=== PATIENT | male | born 1995 ===

== ENCOUNTER 2017-05-12 12:37 | Emergency (ER) | payer SELFPAY ==
[2017-05-12 12:44] VITALS: RESP 18; TEMP 98.3; O2SAT 98
--- NOTE | 2017-05-12 13:10 | C.PDOC ---
History Of Present Illness 21 year old male presents to the ED for evaluation of a draining abscess to left thigh x 2 days. Patient states he initially had pain to the area. Patient notes the area now has spontaneous drainage with pus. Patient denies fever. Patient is also requesting evaluation for possible DM. Reports polyuria as well as a familial history of DM. DRAINING ABSCESS L THIGH X 2 DAYS. INITIALLY W PAIN IN AREA, NOW SPONT DRAINAGE +PUS. NO FEVER REQUESTING EVAL FOR POSSIBLE DM. +POLYURIA. FHX DM EXAM NAD OBESE SKIN +DRAINING ABSCESS L INNER THIGH. MIN LOCAL INDURATION. REMAINDER NEG Time Seen by Provider: 05/12/17 12:57 Chief Complaint (Nursing): Abnormal Skin Integrity History Per: Patient History/Exam Limitations: no limitations Onset/Duration Of Symptoms: Days (2) Current Symptoms Are (Timing): Still Present Location Of Injury: Left: Thigh Quality Of Symptoms: Painful, Draining Additional History Per: Patient Past Medical History Reviewed: Historical Data, Nursing Documentation, Vital Signs Vital Signs: Last Vital Signs Temp 98.3 F 05/12/17 12:41 Pulse 99 H 05/12/17 13:18 Resp 18 05/12/17 13:18 BP 154/98 H 05/12/17 13:18 Pulse Ox 98 05/12/17 19:01 - Medical History PMH: No Chronic Diseases Surgical History: No Surg Hx Family History: States: Diabetes - Social History Hx Alcohol Use: No Hx Substance Use: No - Immunization History Hx Tetanus Toxoid Vaccination: No Hx Influenza Vaccination: No Hx Pneumococcal Vaccination: No Review Of Systems Constitutional: Negative for: Fever Genitourinary: Positive for: Other (polyuria ) Skin: Positive for: Other (abscess to left thigh with drainage ) Physical Exam - Physical Exam Appears: Non-toxic, No Acute Distress, Other (obese) Skin: Normal Color, Warm, Dry, Other (draining abscess to left inner thigh with minimal localized induration) Oral Mucosa: Moist Neck: Supple Chest: Symmetrical, No Deformity, No Tenderness Cardiovascular: Rhythm Regular Respiratory: Normal Breath Sounds Extremity: Normal ROM, Capillary Refill (less than 2 seconds ) Neurological/Psych: Oriented x3, Normal Speech, Normal Cognition ED Course And Treatment O2 Sat by Pulse Oximetry: 98 (on RA) Pulse Ox Interpretation: Normal Disposition Counseled Patient/Family Regarding: Diagnosis, Need For Followup, Rx Given - Disposition Referrals: [facility] [Outside] [facility] [Outside] Disposition: HOME/ ROUTINE Disposition Time: 13:08 Condition: IMPROVED Prescriptions: levoFLOXacin [Levaquin] 500 mg PO DAILY #10 tab Instructions: Abscess Incision and Drainage (ED), Hypertension (ED), Diabetic Hyperglycemia (ED) Forms: [email or web address] (French) Print Language: OCCITAN - Clinical Impression Clinical Impression: Abscess, Uncontrolled diabetes mellitus - Scribe Statement The provider has reviewed the documentation as recorded by the Scribe (Roxie Mendoza) Provider Attestation: All medical record entries made by the Scribe were at my direction and personally dictated by me. I have reviewed the chart and agree that the record accurately reflects my personal performance of the history, physical exam, medical decision making, and the department course for this patient. I have also personally directed, reviewed, and agree with the discharge instructions and disposition.
[2017-05-12 13:19] VITALS: BP 154/98; PULSE 99
== END 2017-05-12 13:20 | disposition home or self-care (01) ==
LOC: C.ER 12:37
DX: L02.416 Cutaneous abscess of left lower limb (principal); E11.65 Type 2 diabetes mellitus with hyperglycemia

== ENCOUNTER 2017-05-31 15:17 | Emergency (ER) | payer OTHER ==
[2017-05-31 15:18] VITALS: BMI 61.8
[2017-05-31] MEDS ORDERED: (Novolin R) Insulin Human Regular 100 units/ml vial IV STA ×2 (15:30)
[2017-05-31] MEDS ORDERED: Sodium Chloride 0.9% 1,000 ML IV ONE (15:30)
--- NOTE | 2017-05-31 15:57 | C.PDOC ---
History Of Present Illness 21 y/o male referred to ED from clinic for evaluation of elevated blood sugar. Patient with blood sugar reading of 460 at the clinic prior to arrival, and 10 units insulin given; 2.5 hours after insulin given, blood sugar measured at 400. Patient denies past history of diabetes and does not take any medications. Denies fever, chills, chest pain, nausea, vomiting, or other associated symptoms. Time Seen by Provider: 05/31/17 15:29 Chief Complaint (Nursing): High Blood Sugar History Per: Patient History/Exam Limitations: no limitations Current Symptoms Are (Timing): Still Present Current Diabetic Medications: None Associated Infectious Symptoms: denies: Cough, Sore Throat, Urinary Frequency, Vomiting, Diarrhea Recent travel outside of the [place]: No Past Medical History Reviewed: Historical Data, Nursing Documentation, Vital Signs Vital Signs: Last Vital Signs Temp 97.8 F 05/31/17 15:20 Pulse 99 H 05/31/17 15:20 Resp 20 05/31/17 15:20 BP 148/86 05/31/17 15:20 Pulse Ox 96 05/31/17 18:11 - Medical History PMH: No Chronic Diseases Family History: States: Diabetes - Social History Hx Alcohol Use: No Hx Substance Use: No - Immunization History Hx Tetanus Toxoid Vaccination: No Hx Influenza Vaccination: No Hx Pneumococcal Vaccination: No Review Of Systems Except As Marked, All Systems Reviewed And Found Negative. Constitutional: Positive for: Other ((+) Snoring). Negative for: Fever, Chills Cardiovascular: Negative for: Chest Pain Respiratory: Negative for: Cough, Shortness of Breath Gastrointestinal: Negative for: Vomiting Skin: Negative for: Rash Neurological: Negative for: Headache, Dizziness Physical Exam - Physical Exam Appears: Non-toxic, No Acute Distress, Other (morbidly obese) Skin: Warm, Dry Head: Atraumatic, Normacephalic Oral Mucosa: Moist, Other (small oropharynx) Throat: Normal, No Erythema, No Exudate Neck: Normal ROM, Supple, Other (thick) Chest: Symmetrical Cardiovascular: Rhythm Regular Respiratory: Normal Breath Sounds, No Rales, No Rhonchi, No Wheezing Gastrointestinal/Abdominal: Soft, No Tenderness, No Guarding, No Rebound Back: Normal Inspection Extremity: Normal ROM, Capillary Refill (< 2 sec.) Neurological/Psych: Oriented x3, Normal Speech, Normal Cognition ED Course And Treatment - Laboratory Results Result Diagrams: 05/31/17 16:06 05/31/17 16:06 Lab Interpretation: Abnormal (++ glu, small ketones, normal bicarb) O2 Sat by Pulse Oximetry: 96 (RA) Pulse Ox Interpretation: Normal Progress Note: insulin bolus x 2, final glu 282 @ 1800. pt feels better Medical Decision Making Medical Decision Making: uncontrolled DM morbid obesity 400#, no DM meds prescribed "yet" No DKA Start glipizide and Metformin and opt f/u and FS log and f/u as opt. Disposition Doctor Will See Patient In The: Office Counseled Patient/Family Regarding: Studies Performed, Diagnosis - Disposition [facility]errals[facility]Outside] [facility] Montez Ferrer MD [Staff Provider] - Disposition: HOME/ ROUTINE Disposition Time: 18:10 Condition: GOOD Additional Instructions: Diabetic Diet: Glipizide 5 mg en la manana Metformina 1000 mg dos veces al karmen (con comida) Checke el azucar ANTES del [place] y [facility], y apuntalos en short libro. Regressa en la Clinica en 2 semanas. Apnea de [place]: [place] para hacer ana luisa de estudio de dormir con Dr. Ferrer- especialista Repiratorio Prescriptions: GlipiZIDE [Glucotrol] 5 mg PO DAILY #30 tab MetFORMIN [glucoPHAGE] 1,000 mg PO BID #60 tab Instructions: Snoring (ED), Diabetes Mellitus Type 2 in Adults (ED), Weight Management (ED) Forms: [employer] (Turkish) Print Language: CUBAN - Clinical Impression Clinical Impression: Hyperglycemia, Morbid obesity - Scribe Statement The provider has reviewed the documentation as recorded by the Scribe SM All medical record entries made by the Scribe were at my direction and personally dictated by me. I have reviewed the chart and agree that the record accurately reflects my personal performance of the history, physical exam, medical decision making, and the department course for this patient. I have also personally directed, reviewed, and agree with the discharge instructions and disposition.
[2017-05-31] MEDS ORDERED: (Novolin R) Insulin Human Regular 100 units/ml vial ONE ×2 (16:08→17:00)
[2017-05-31 16:11] LABS: BASO # 0.1 K/uL (0.0-0.2); BASO % 1.2 % (0.0-2.0); EOS # 0.1 K/uL (0.0-0.7); EOS % 0.7 % (0.0-4.0); HEMATOCRIT 49.3 % (35.0-51.0); LYMPH # 3.1 K/uL (1.0-4.3); LYMPH % 35.2 % (20.0-40.0); MEAN CELL VOLUME 75.8 fL (80.0-94.0); MEAN PLATELET VOLUME 10.1 fL (7.2-11.7); MONO # 0.7 K/uL (0.0-0.8); MONO % 8.2 % (0.0-10.0); NRBC % 0.1 % (0.0-2.0); RED CELL DISTRIBUTION WIDTH 13.9 % (11.5-14.5); WHITE BLOOD COUNT 8.8 K/uL (4.8-10.8)
[2017-05-31 16:39] LABS: RBC URINE 9 /hpf (0-3); URINE BACTERIA RARE (<OCC); URINE BILIRUBIN NEGATIVE (NEGATIVE); URINE BLOOD NEGATIVE (NEGATIVE); URINE COLOR Straw (YELLOW); URINE GLUCOSE (UA) 3+ mg/dL (Normal); URINE KETONE 2+ mg/dL (NEGATIVE); URINE LEUKOCYTE ESTERASE NEG Leu/uL (Negative); URINE PROTEIN NEGATIVE (NEGATIVE); URINE UROBILINOGEN NORMAL mg/dL (0.2-1.0); WBC URINE 4 /hpf (0-5)
[2017-05-31] MEDS ORDERED: (Novolin R) Insulin Human Regular 100 units/ml vial SC ONE (16:42)
[2017-05-31 16:54] LABS: ALB/GLOB RATIO 1.2 (1.0-2.1); ALKALINE PHOSPHATASE 118 U/L (38-126); ALT/SGPT 50 U/L (21-72); AST/SGOT 39 U/L (17-59); BLOOD UREA NITROGEN 10 mg/dL (9-20); CALCIUM 9.2 mg/dl (8.6-10.4); CARBON DIOXIDE 24 mmol/L (22-30); CHLORIDE 93 mmol/L (98-107); GFR AFRICAN-AMERICAN > 60; GLUCOSE,RANDOM 463 mg/dL (75-110); POTASSIUM 4.2 mmol/L (3.6-5.2); SODIUM 136 mmol/L (132-148); TOTAL PROTEIN 8.1 g/dL (6.3-8.3)
[2017-05-31 18:36] VITALS: BP 128/75; PULSE 91; RESP 18; TEMP 98.2; O2SAT 99
== END 2017-05-31 18:30 | disposition home or self-care (01) ==
LOC: C.ER 15:17
DX: R73.9 Hyperglycemia, unspecified (principal); E66.01 Morbid (severe) obesity due to excess calories; Z68.44 Body mass index [BMI] 60.0-69.9, adult
CPT/HCPCS: 80053; 81001; 82009; 82948; 83036; 85025; 96360; 96372; 99285; J7040